=== PATIENT | female | born 1950 | race Caucasian/White ===

== ENCOUNTER 2017-01-06 12:05 | Outpatient (CLI) | payer MEDICARE, OTHER ==
--- NOTE | 2017-01-06 15:02 | Diagnostic Imaging Report ---
[facility] [address] [facility] [address] [address] Report Submission Date: Jan 06, 2017 1:11:17 PM ORDER ENTRY TECHNICIAN Patient Study Name: PAT JIMENES Date: Jan 06, 2017 12:13:43 PM ORDER ENTRY TECHNICIAN Modality Type: CR Gender: F Description: LOWER EXTREMITY : 50 Institution: [facility] Physician: PANHCO ROCHA Right knee 3 views History: Joint effusion. Knee replacement. Findings: Varicose veins are observed bilaterally. 3 component right knee arthroplasty is observed in anatomic alignment without fracture, dislocation, or loosening. A suprapatellar joint effusion is present. Prepatellar edema is observed. An AP standing view of the left knee reveals a 3.3 x 4.6 cm sclerotic lesion in the distal femur versus cement. The lateral view is not provided so the exact location is unknown. Left knee replacement has been performed. Impression: 1. Bilateral varicose veins. 2. Bilateral knee replacements. No evidence of right knee component loosening or fracture. 3. Right knee joint effusion. 4. Blastic lesion versus cement projecting over the distal left femur. Recommend correlation with clinical history and previous films. Electronically signed on Jan 06, 2017 1:11:17 PM ORDER ENTRY TECHNICIAN by: Marc PARNELL
== END 2017-01-06 12:06 ==
LOC: RAD 12:05
PROVIDERS: ATTEND Orthopaedic Surgery
DX: Z09 Encounter for follow-up examination after completed treatment for conditions other than malignant neoplasm (principal); Z96.653 Presence of artificial knee joint, bilateral
CPT/HCPCS: 73562; 73565